=== PATIENT | male | born 1995 | race African-American/Black ===

== ENCOUNTER 2018-09-13 17:20 | Emergency (ER) | payer MEDICARE, MEDICAID ==
[~2018-09-13] VITALS: Ht 180.3 cm; Wt 112.5 kg
[2018-09-13 17:39] VITALS: BP 125/74
[2018-09-13 18:02] LABS: Urine Bacteria NONE SEEN /hpf (None Seen); Urine Blood Negative /uL (Negative); Urine WBC 2 /hpf (0 - 3)
== END 2018-09-13 21:23 | disposition left against medical advice (07) ==
LOC: ER 17:20
DX: R30.0 Dysuria (principal); Z53.21 Procedure and treatment not carried out due to patient leaving prior to being seen by health care provider
CPT/HCPCS: 81001

== ENCOUNTER 2019-01-29 12:41 | Emergency (ER) | payer MEDICARE, MEDICAID ==
[~2019-01-29] VITALS: Ht 185.4 cm; Wt 117.9 kg
[2019-01-29 13:46] LABS: Basophils # (auto) 0.1 uL; Basophils % (auto) 1.2 % (0.0-2.0); Eosinophils # (auto) 0.2 uL; Eosinophils % (auto) 3.4 % (0.0-7.0); Hematocrit 43.2 % (41.0-53.0); Hemoglobin 14.6 g/dL (13.5-17.5); Lymphocytes # (auto) 2.5 uL; Lymphocytes % (auto) 44.4 % (10.0-50.0); Mean Corpuscular Hemoglobin 32.1 pg (28.0-32.0); Mean Corpuscular Hgb Conc. 33.7 g/dL (32.0-36.0); Mean Corpuscular Volume 95.2 fL (80.0-100.0); Monocytes # (auto) 0.7 uL; Monocytes % (auto) 12.4 % (0.0-12.0); Neutrophils # (auto) 2.1 uL; Neutrophils % (auto) 38.6 % (37.0-80.0); Nucleated Red Blood Cells % 0.1 %; Platelet Count (auto) 237 10^3/uL (140-450); Red Blood Cells 4.54 10^6/uL (4.5-5.90); Red Cell Distribution Width 12.9 % (11.8-14.3); White Blood Cell 5.5 10^3/uL (4.4-10.8)
[2019-01-29 14:11] LABS: Anion Gap 5 (5-15); BUN/Creatinine Ratio 8.6; Blood Alcohol < 3.0 mg/dL (0-5); Blood Urea Nitrogen 8 mg/dL (7-18); Carbon Dioxide 26 mmol/L (21-32); Chloride 106 mmol/L (98-107); GFR African American 128 mL/min; GFR Non-African American 106 mL/min; Glucose 89 mg/dL (74-106); Potassium 3.8 mmol/L (3.5-5.1); Sodium 137 mmol/L (136-145)
[2019-01-29 16:20] LABS: Alcohol, Urine < 3.0 mg/dL (0-5); Amphetamine Screen, Urine NEGATIVE (NEGATIVE); Barbiturate Scree,Urine NEGATIVE (NEGATIVE); Benzodiazephine Screen, Urine NEGATIVE (NEGATIVE); Cannabinoid Screen, Urine NEGATIVE (NEGATIVE); Cocaine Screen, Urine NEGATIVE (NEGATIVE); Opiate Scree,Urine NEGATIVE (NEGATIVE); Phencyclidine Screen, Urine NEGATIVE (NEGATIVE)
[2019-01-30] MEDS ORDERED: LORazepam 0.5 MG TAB PO ONE (01:15)
[2019-01-30] MEDS ORDERED: QUEtiapine FUMARATE 25 MG TAB PO ONE (01:45)
[2019-01-30] MEDS ORDERED: OLANZapine 5 MG TAB PO ONE (01:45)
[2019-01-30] MEDS: lamoTRIgine 100 MG TAB PO SCH ×2 (11:04→22:31)
[2019-01-30] MEDS: QUEtiapine FUMARATE 25 MG TAB PO SCH (22:31)
[2019-01-30] MEDS: OLANZapine 5 MG TAB PO SCH (22:32)
[2019-01-31] MEDS: lamoTRIgine 100 MG TAB PO SCH ×2 (10:09→22:31)
[2019-01-31] MEDS ORDERED: LORazepam 0.5 MG TAB PO PRN (16:45)
[2019-01-31] MEDS ORDERED: LORazepam 2MG/ML-1ML VIAL ONE (20:49)
[2019-01-31] MEDS ORDERED: LORazepam 2MG/ML-1ML VIAL IM ONE ×2 (21:00→23:15)
[2019-01-31] MEDS: OLANZapine 5 MG TAB PO SCH (22:31)
[2019-01-31] MEDS: QUEtiapine FUMARATE 25 MG TAB PO SCH (22:31)
[2019-02-01 08:17] VITALS: BP 114/87
== END 2019-02-01 08:46 | disposition short-term general hospital (02) ==
LOC: ER 12:49
DX: R45.851 Suicidal ideations (principal); F41.9 Anxiety disorder, unspecified; F32.9 Major depressive disorder, single episode, unspecified; F20.9 Schizophrenia, unspecified
CPT/HCPCS: 36415; 80048; 80307; 80320; 85025; 96372

== ENCOUNTER 2019-06-20 23:59 | Emergency (ER) | payer MEDICARE, MEDICAID ==
[~2019-06-20] VITALS: Ht 172.7 cm; Wt 90.7 kg
[2019-06-21 01:35] LABS: Basophils # (auto) 0.1 uL; Basophils % (auto) 1.1 % (0.0-2.0); Eosinophils # (auto) 0.3 uL; Eosinophils % (auto) 3.6 % (0.0-7.0); Hemoglobin 14.5 g/dL (13.5-17.5); Lymphocytes # (auto) 3.8 uL; Lymphocytes % (auto) 55.1 % (10.0-50.0); Mean Corpuscular Hemoglobin 32.3 pg (28.0-32.0); Mean Corpuscular Hgb Conc. 32.9 g/dL (32.0-36.0); Mean Corpuscular Volume 98.1 fL (80.0-100.0); Monocytes # (auto) 0.7 uL; Monocytes % (auto) 9.9 % (0.0-12.0); Neutrophils # (auto) 2.1 uL; Neutrophils % (auto) 30.3 % (37.0-80.0); Nucleated Red Blood Cells % 0.1 %; Platelet Count (auto) 204 10^3/uL (140-450); Red Blood Cells 4.48 10^6/uL (4.5-5.90); Red Cell Distribution Width 13.9 % (11.8-14.3); White Blood Cell 6.9 10^3/uL (4.4-10.8)
[2019-06-21 01:47] LABS: Albumin 3.7 g/dL (3.4-5.0); Anion Gap 13 (5-15); BUN/Creatinine Ratio 12.8; Blood Alcohol < 3.0 mg/dL (0-5); Blood Urea Nitrogen 12 mg/dL (7-18); Calcium 8.5 mg/dL (8.5-10.1); Carbon Dioxide 21 mmol/L (21-32); Chloride 107 mmol/L (98-107); GFR African American 127 mL/min; GFR Non-African American 105 mL/min; Glucose 88 mg/dL (74-106); Potassium 3.8 mmol/L (3.5-5.1); Sodium 141 mmol/L (136-145)
[2019-06-21 01:50] LABS: Alanine Aminotransferase 22 U/L (16-61); Alkaline Phosphatase 80 U/L (45-117); Aspartate Aminotransferase 32 U/L (15-37); Bilirubin, Total 0.4 mg/dL (0.2-1.0); Total Protein 7.9 g/dL (6.4-8.2)
[2019-06-21 01:58] LABS: Salicylate < 1.7 mg/dL (2.8-20.0)
[2019-06-21 01:59] LABS: Acetaminophen < 2.0 ug/mL (10-30)
[2019-06-21 02:11] LABS: Urine Bacteria NONE SEEN /hpf (None Seen); Urine Blood Negative /uL (Negative); Urine Mucus FEW (None Seen); Urine Specific Gravity 1.039 (1.001-1.035); Urine WBC <1 /hpf (0 - 3)
[2019-06-21 02:29] LABS: Alcohol, Urine < 3.0 mg/dL (0-5); Amphetamine Screen, Urine NEGATIVE (NEGATIVE); Barbiturate Scree,Urine NEGATIVE (NEGATIVE); Benzodiazephine Screen, Urine NEGATIVE (NEGATIVE); Cannabinoid Screen, Urine NEGATIVE (NEGATIVE); Cocaine Screen, Urine NEGATIVE (NEGATIVE); Opiate Scree,Urine NEGATIVE (NEGATIVE); Phencyclidine Screen, Urine NEGATIVE (NEGATIVE)
[2019-06-21 19:03] VITALS: BP 107/47
[2019-06-21] MEDS ORDERED: OLANZapine 5 MG TAB PO SCH (22:00)
== END 2019-06-21 19:19 | disposition short-term general hospital (02) ==
LOC: ER 06-21 00:01
DX: R45.851 Suicidal ideations (principal); F32.9 Major depressive disorder, single episode, unspecified; F20.9 Schizophrenia, unspecified; F41.9 Anxiety disorder, unspecified
CPT/HCPCS: 36415; 80053; 80307; 80320; 80329; 81001; 85025